=== PATIENT | female | born 1995 | race Caucasian/White ===

== ENCOUNTER 2017-04-21 03:37 | Emergency (ER) | payer BC ==
[~2017-04-21] VITALS: Ht 152.4 cm; Wt 77.1 kg
[2017-04-21 03:38] VITALS: BP_SYST 155
[2017-04-21] MEDS ORDERED: NACL 0.9% 1,000 ML IV ONE (03:50)
[2017-04-21] MEDS ORDERED: KETOROLAC TROMETHAMINE 30 MG VIAL IVP ONE (04:00)
[2017-04-21] MEDS ORDERED: ONDANSETRON HCL 4 MG/2 ML VIAL ONE (04:19)
[2017-04-21] MEDS ORDERED: ONDANSETRON HCL 4 MG/2 ML VIAL IVP ONE (04:30)
[2017-04-21 04:46] LABS: BASOPHILS % (AUTO) 0.4 % (0.0-2.0); EOSINOPHILS # (AUTO) 0.1 K/uL (0.0-0.4); EOSINOPHILS % (AUTO) 0.7 % (0.0-4.0); HEMATOCRIT 38.8 % (36-48); HEMOGLOBIN 13.1 g/dL (12.0-16.0); LYMPHOCYTES # (AUTO) 1.8 K/uL (1.0-5.5); LYMPHOCYTES % (AUTO) 15.5 % (20.5-51.5); MEAN CORPUSCULAR HEMOGLOBIN 27 pg (27-31); MEAN CORPUSCULAR HGB CONC 34 % (32-36); MEAN CORPUSCULAR VOLUME 79 fL (79.0-98.0); MONOCYTES # (AUTO) 0.4 K/uL (0.0-1.0); MONOCYTES % (AUTO) 3.4 % (1.7-9.3); NEUTROPHILS # (AUTO) 9.6 K/uL (1.8-7.7); PLATELET COUNT (AUTO) 265 K/uL (130-430); RED BLOOD CELL COUNT(AUTO) 4.91 MIL/uL (4.2-6.2); RED CELL DISTRIBUTION WIDTH 12.4 % (9.0-15.0); WHITE BLOOD COUNT (AUTO) 11.9 K/uL (4.5-11.0)
[2017-04-21 04:53] LABS: CALCIUM 9.8 mg/dL (8.4-11.0); CREATININE 0.89 mg/dL (0.55-1.30); POTASSIUM 3.6 mmol/L (3.5-5.1)
[2017-04-21 04:58] LABS: ALBUMIN 4.2 g/dL (3.4-4.8); TOTAL BILIRUBIN 0.3 mg/dL (0.0-1.0)
[2017-04-21] MEDS ORDERED: PROMETHAZINE HCL 25 MG/ML AMP IVP ONE (05:15)
[2017-04-21] MEDS ORDERED: HYDROcodone/ACETAMIN 5-325 MG TAB (NORCO/ VICODIN) PO ONE (05:30)
[2017-04-21] MEDS ORDERED: MORPHINE 2 MG/ML INJ. SYRINGE IVP ONE (05:30)
[2017-04-21 05:50] VITALS: BP_SYST 150
== END 2017-04-21 05:50 | disposition home or self-care (01) ==
LOC: SED 03:37
DX: N13.2 Hydronephrosis with renal and ureteral calculous obstruction (principal); R03.0 Elevated blood-pressure reading, without diagnosis of hypertension; Z88.8 Allergy status to other drugs, medicaments and biological substances
CPT/HCPCS: 36415; 74176; 80053; 85025; 85610; 85730; 87040; 96361; 96374; 96375; 99285; J1885; J2405; J7030; J2550

== ENCOUNTER 2019-08-10 01:57 | Emergency (ER) | payer BC ==
[~2019-08-10] VITALS: Ht 154.9 cm; Wt 81.6 kg
[2019-08-10 01:59] VITALS: BP_SYST 144
--- NOTE | 2019-08-10 01:59 | NUR ---
Patient to ER bed to [place] for evaluation. Side rails up. Report given to JOSE Wilson Addendum: 08/10/19 at 0229 by [email or web address] Report given to JOSE Archibald
--- NOTE | 2019-08-10 02:10 | NUR ---
Pt. presents to the ED ambulatory and A&Ox4. Pt. c/o of 810 abdominal pain that radiates to the back on the left side. She vomited x3 today and x1 30 minutes before arrival. Patient states that hasnt been able to drink water and that this pain feels the same as when she got a kidney stone in the past.
--- NOTE | 2019-08-10 02:33 | NUR ---
ER Dr. Barnett at bedside examining patient.
[2019-08-10] MEDS ORDERED: ONDANSETRON HCL 4 MG/2 ML VIAL IVP ONE (02:45)
[2019-08-10] MEDS ORDERED: MORPHINE 4 MG/ML INJ. SYRINGE IVP ONE ×2 (02:45→04:45)
[2019-08-10] MEDS ORDERED: KETOROLAC TROMETHAMINE 15 MG VIAL IVP ONE (02:45)
[2019-08-10 02:56] LABS: BASOPHILS # (AUTO) 0.1 K/uL (0.0-0.2); BASOPHILS % (AUTO) 0.4 % (0.0-2.0); EOSINOPHILS # (AUTO) 0.1 K/uL (0.0-0.4); EOSINOPHILS % (AUTO) 0.7 % (0.0-4.0); HEMATOCRIT 38.7 % (36-48); LYMPHOCYTES # (AUTO) 1.9 K/uL (1.0-5.5); LYMPHOCYTES % (AUTO) 15.1 % (20.5-51.5); MEAN CORPUSCULAR HEMOGLOBIN 27 pg (27-31); MEAN CORPUSCULAR HGB CONC 34 % (32-36); MEAN CORPUSCULAR VOLUME 80 fL (79.0-98.0); MONOCYTES # (AUTO) 0.6 K/uL (0.0-1.0); MONOCYTES % (AUTO) 4.9 % (1.7-9.3); NEUTROPHILS # (AUTO) 9.9 K/uL (1.8-7.7); NEUTROPHILS % (AUTO) 78.9 % (40.0-70.0); PLATELET COUNT (AUTO) 239 K/uL (130-430); RED BLOOD CELL COUNT(AUTO) 4.83 MIL/uL (4.2-6.2); RED CELL DISTRIBUTION WIDTH 13.7 % (9.0-15.0); WHITE BLOOD COUNT (AUTO) 12.6 K/uL (4.8-10.8)
--- NOTE | 2019-08-10 03:00 | NUR ---
# 20 gauge angiocath placed to LT Hand. Use of asceptic technique. Opsite placed over site. Blood return noted. Flushed with 10 cc of normal saline. No evidence of infiltration noted. Patient tolerated well.
[2019-08-10 03:11] LABS: CALCIUM 8.6 mg/dL (8.4-11.0); CREATININE 0.83 mg/dL (0.55-1.30); POTASSIUM 3.7 mmol/L (3.5-5.1)
[2019-08-10 03:13] LABS: ALBUMIN 3.9 g/dL (3.4-4.8); TOTAL BILIRUBIN 0.4 mg/dL (0.0-1.0)
--- NOTE | 2019-08-10 03:15 | NUR ---
Pt. off unit for radioogy accompanied by radiation therapy technician.
--- NOTE | 2019-08-10 03:22 | NUR ---
Pt. back on unit from radiology.
[2019-08-10] MEDS ORDERED: METOCLOPRAMIDE HCL 10 MG/2 ML VIAL IVP ONE (04:45)
--- NOTE | 2019-08-10 04:49 | NUR ---
Pt has been given IVP Reglan and Morphine for increasing pain and nausea. Tolerated medications well, will continue to monitor.
[2019-08-10 05:36] VITALS: BP_SYST 144
--- NOTE | 2019-08-10 05:37 | NUR ---
Patient given written and verbal discharge instructions and verbalizes understanding. ER MD discussed with patient the results and treatment provided. Patient in stable condition. ID arm band removed. IV catheter removed intact and dressing applied, no active bleeding. Rx of Tamsulosin and Motrin adn [place] given. Patient educated on pain management and to follow up with PMD. Pain Scale 0. Opportunity for questions provided and answered. Medication side effect fact sheet provided.
== END 2019-08-10 05:36 | disposition home or self-care (01) ==
LOC: SED 01:57
DX: R10.9 Unspecified abdominal pain (principal)
CPT/HCPCS: 36415; 71045; 76770; 80053; 81002; 81025; 83690; 85025; 96374; 96375; 96376; 99285; J1885; J2270; J2405; J2765